=== PATIENT | male | born 1975 | race African-American/Black ===

== ENCOUNTER 2019-05-15 06:34 | Emergency (ER) | payer MEDICARE, MEDICAID, SELFPAY ==
[2019-05-15 06:36] VITALS: BP 159/109; PULSE 106; RESP 22; TEMP 36.5; O2SAT 100; BMI 23.6
[2019-05-15] MEDS: fentaNYL 100 MCG/2 ML Ampul 50 MCG IV (06:46)
[2019-05-15 06:50] VITALS: BP 168/105; PULSE 46; RESP 19; TEMP 36.1; O2SAT 100
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
--- NOTE | 2019-05-15 07:07 | ED.RN ---
report called to [facility] nurse alia at [phone]. pt transferred via ems.
--- NOTE | 2019-05-15 07:18 | ED.RN ---
unable to administer antibiotic or tetanus due to pt transfer before orders were placed/ ready.
== END 2019-05-15 07:13 | disposition short-term general hospital (02) ==
PROVIDERS: Emergency Provider Emergency Medicine
DX: S52.252B Displaced comminuted fracture of shaft of ulna, left arm, initial encounter for open fracture type I or II (principal); S71.132A Puncture wound without foreign body, left thigh, initial encounter; S71.131A Puncture wound without foreign body, right thigh, initial encounter; S81.832A Puncture wound without foreign body, left lower leg, initial encounter; S31.813A Puncture wound without foreign body of right buttock, initial encounter; X95.9XXA Assault by unspecified firearm discharge, initial encounter; Y93.9 Activity, unspecified; Y92.9 Unspecified place or not applicable
CPT/HCPCS: 36415; 51702; 72170; 73090; 73590; 96374; 99251; 99285; J7030; G0463

== ENCOUNTER 2019-06-08 12:49 | Emergency (ER) | payer MEDICARE, MEDICAID, SELFPAY ==
[2019-06-08 12:50] VITALS: BP 131/68; PULSE 110; RESP 17; TEMP 36.4; O2SAT 100; BMI 22.9
[2019-06-08 13:08] VITALS: RESP 16
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
--- NOTE | 2019-06-08 14:48 | DCINST.ED_ITS ---
ED Disposition - Plan for ED Patient: Instructions: SUTURE REMOVAL, No Complication, POST OP WOUND CHECK, General Prescriptions: Smz/Tmp Ds [Bactrim Ds] 1 tab PO BID #14 tab Prescription Printed Cephalexin [Keflex] 500 mg PO Q6 #40 cap Prescription Printed Referrals: Care Physician,No Primary [Primary Care Provider] - Additional Instructions: You need to follow up with Dr. Chacko (your surgeon). Call Address: [address] [place] [address]
[2019-06-08] MEDS: Cephalexin 250 MG Capsule 500 MG PO (14:51)
[2019-06-08] MEDS: Smz/Tmp Ds Tablet 1 TABLET PO (14:52)
[2019-06-08 14:55] VITALS: RESP 16
== END 2019-06-08 14:56 | disposition home or self-care (01) ==
PROVIDERS: Emergency Provider Emergency Medicine
DX: Z48.02 Encounter for removal of sutures (principal); S81.802A Unspecified open wound, left lower leg, initial encounter; W34.00XA Accidental discharge from unspecified firearms or gun, initial encounter; F15.90 Other stimulant use, unspecified, uncomplicated; F17.200 Nicotine dependence, unspecified, uncomplicated
CPT/HCPCS: 99283

== ENCOUNTER 2020-02-28 16:45 | Emergency (ER) | payer MEDICARE, SELFPAY ==
[2020-02-28 16:46] VITALS: BP 137/93; PULSE 104; RESP 16; TEMP 36.9; O2SAT 99; BMI 24.0
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
--- NOTE | 2020-02-28 17:32 | ED.DEP ---
ED Disposition - Plan for ED Patient: Instructions: ED EXTREMITY CONTUSION Upper Referrals: Zia Lisa Jr., MD [HONORARY STAFF] -
--- NOTE | 2020-02-28 17:37 | ED.DEP ---
ED Disposition - Plan for ED Patient: Instructions: ED EXTREMITY CONTUSION Upper Prescriptions: Naproxen [Naprosyn] 500 mg PO BID PRN #20 tab Prescription Printed Referrals: Zia Lisa Jr., MD [HONORARY STAFF] -
[2020-02-28 17:43] VITALS: RESP 16
--- NOTE | 2020-02-28 17:44 | ED.RN ---
REVIEWED D/C INSTRUCTIONS, FOLLOW UP CARE, AND S/S THAT WOULD WARRANT A RETURN TO THE ED WITH PT. PT VERBALIZED AN UNDERSTANDING AND DENIES FURTHER QUESTIONS FOR THIS RN. PT SKIN P/W/D, RESP EVEN AND UNLABORED, PT A&O X 3, NO DISTRESS NOTED. PT AMBULATED OUT OF ED, GAIT STEADY.
== END 2020-02-28 17:44 | disposition home or self-care (01) ==
LOC: ED 17:10
PROVIDERS: Emergency Provider Emergency Medicine
DX: S50.11XA Contusion of right forearm, initial encounter (principal); S60.311A Abrasion of right thumb, initial encounter; Y04.0XXA Assault by unarmed brawl or fight, initial encounter; Y93.89 Activity, other specified; Y92.9 Unspecified place or not applicable; Z72.0 Tobacco use
CPT/HCPCS: 73090; 73130; 99284